=== PATIENT | female | born 1975 | race Two or more races ===

== ENCOUNTER 2016-10-04 08:37 | Emergency (ER) | payer MEDICAID ==
[~2016-10-04] VITALS: Ht 167.6 cm; Wt 106.6 kg
[~2016-10-04 08:37] MED LIST: GABA300C8 PO; GLIM2TAB33 PO; HYDR-3682 PO; INSLANTI SC; INSUINJ7 IJ; LISI-646 PO; METF-312 PO
[2016-10-04 08:49] VITALS: BP 158/90
== END 2016-10-04 16:46 | disposition left against medical advice (07) ==
LOC: ER 08:37
DX: R51 Headache (principal); Z53.21 Procedure and treatment not carried out due to patient leaving prior to being seen by health care provider
CPT/HCPCS: 93005

== ENCOUNTER 2018-11-11 15:14 | Emergency (ER) | payer MEDICAID ==
[~2018-11-11] VITALS: Ht 167.6 cm; Wt 102.1 kg
[~2018-11-11 15:14] MED LIST changes: +CYCL5TAB PO; +ESCI10TA PO; +GABA300C10 PO; -GABA300C8 PO; -HYDR-3682 PO; -METF-312 PO; +PRA25T PO; +SIMV-8 PO
[2018-11-11 18:20] VITALS: BP 130/80
== END 2018-11-11 18:41 | disposition home or self-care (01) ==
LOC: EDBD 15:14 → ER 15:20
DX: S16.1XXA Strain of muscle, fascia and tendon at neck level, initial encounter (principal); S50.01XA Contusion of right elbow, initial encounter; S70.01XA Contusion of right hip, initial encounter; S09.8XXA Other specified injuries of head, initial encounter; E11.9 Type 2 diabetes mellitus without complications; E78.5 Hyperlipidemia, unspecified; I10 Essential (primary) hypertension; F17.210 Nicotine dependence, cigarettes, uncomplicated; Z90.49 Acquired absence of other specified parts of digestive tract; Z86.39 Personal history of other endocrine, nutritional and metabolic disease; Z79.4 Long term (current) use of insulin; Z79.899 Other long term (current) drug therapy; W01.0XXA Fall on same level from slipping, tripping and stumbling without subsequent striking against object, initial encounter; Y93.89 Activity, other specified; Y92.098 Other place in other non-institutional residence as the place of occurrence of the external cause; Y99.8 Other external cause status
CPT/HCPCS: 70450; 72125; 73080; 73502; 73610

== ENCOUNTER 2018-12-06 14:43 | Emergency (ER) | payer MEDICAID ==
[~2018-12-06] VITALS: Ht 170.2 cm; Wt 108.9 kg
[2018-12-06] MEDS ORDERED: SODIUM CHLORIDE 0.9% 1,000 ML IV ONE ×2 (14:47)
[2018-12-06] MEDS ORDERED: IOHEXOL 300 MG/ML 100ML BOTTLE IJ ONE (15:04)
[2018-12-06 15:31] LABS: Basophils # (auto) 0.1 uL; Basophils % (auto) 1.1 % (0.0-2.0); Eosinophils # (auto) 0.2 uL; Eosinophils % (auto) 2.2 % (0.0-7.0); Hematocrit 43.3 % (36.0-46.0); Hemoglobin 14.8 g/dL (12.2-16.2); Lymphocytes # (auto) 1.4 uL; Lymphocytes % (auto) 17.9 % (10.0-50.0); Mean Corpuscular Hemoglobin 32.5 pg (28.0-32.0); Mean Corpuscular Hgb Conc. 34.3 g/dL (32.0-36.0); Mean Corpuscular Volume 94.8 fL (80.0-100.0); Monocytes # (auto) 0.2 uL; Monocytes % (auto) 2.9 % (0.0-12.0); Neutrophils # (auto) 6.1 uL; Neutrophils % (auto) 75.9 % (37.0-80.0); Platelet Count (auto) 214 10^3/uL (140-450); Red Blood Cells 4.57 10^6/uL (4.0-5.20); Red Cell Distribution Width 14.7 % (11.8-14.3); White Blood Cell 8.1 10^3/uL (4.4-10.8)
[2018-12-06 15:47] LABS: INR 0.87 (0.9-1.15); Partial Thromboplastin Time 23.1 sec (23.64-32.05); Prothrombin Time 9.5 sec (9.06-12.60)
[2018-12-06] MEDS ORDERED: PIPERACILLIN-TAZOB 3.375GM 100 ML IV ONE (16:00)
[2018-12-06 16:05] VITALS: BP 121/83
[2018-12-06 16:10] LABS: Alanine Aminotransferase 22 U/L (13-56); Albumin 3.3 g/dL (3.4-5.0); Aspartate Aminotransferase 15 U/L (15-37); Blood Urea Nitrogen 21 mg/dL (7-18); Calcium 8.6 mg/dL (8.5-10.1); Carbon Dioxide 21 mmol/L (21-32); GFR African American 78 mL/min; GFR Non-African American 64 mL/min; Glucose 378 mg/dL (74-106)
[2018-12-06 16:34] LABS: Chloride 104 mmol/L (98-107); Potassium 4.2 mmol/L (3.5-5.1); Sodium 135 mmol/L (136-145)
[2018-12-06 16:39] LABS: Alkaline Phosphatase 145 U/L (45-117); Bilirubin, Total 0.3 mg/dL (0.2-1.0); Total Protein 7.9 g/dL (6.4-8.2)
[2018-12-06] MEDS ORDERED: KETOROLAC TROMETH 60MG/2ML VIAL IM ONE (16:45)
[2018-12-06] MEDS ORDERED: cefTRIAXone SOD 1,000 MG VL IM ONE (16:45)
[2018-12-06] MEDS ORDERED: KETOROLAC TROMETH 30 MG/ML 1ML VIAL IV ONE (16:45)
[2018-12-06 17:24] LABS: Anion Gap 14.2 (5-15)
== END 2018-12-06 17:55 | disposition home or self-care (01) ==
LOC: EDBD 14:43 → ER 14:46
DX: E11.621 Type 2 diabetes mellitus with foot ulcer (principal); J45.909 Unspecified asthma, uncomplicated; E78.5 Hyperlipidemia, unspecified; I10 Essential (primary) hypertension; F17.210 Nicotine dependence, cigarettes, uncomplicated; Z90.49 Acquired absence of other specified parts of digestive tract; Z98.51 Tubal ligation status; Z79.4 Long term (current) use of insulin; Z79.899 Other long term (current) drug therapy
CPT/HCPCS: 36415; 71045; 73701; 80053; 83605; 84484; 85025; 85610; 85730; 87040; 96365; 96372; 96375; 99284; J1885; J2543; J7030; Q9967